=== PATIENT | male | born 1960 | race Caucasian/White ===

== ENCOUNTER → 2022-07-10 | Outpatient (CLI) | payer SELFPAY ==
[2022-07-10 17:55] LABS: Hematocrit 41.7 % (37.0-53.0); Hemoglobin 13.9 g/dL (13.5-17.5); Mean Corpuscular HGB 30.4 pg (26.0-34.0); Mean Corpuscular HGB Conc 33.3 g/dL (31.5-36.5); Mean Corpuscular Volume 91 fL (80-100); Mean Platelet Volume 11.4 fL (9.1-12.4); Platelet Count 96 K/mm3 (150-400); RDW Coefficient Variation 12.9 % (11.7-14.2); RDW Standard Deviation 42.9 fL (35.1-46.3); Red Blood Cell Count 4.57 M/mm3 (4.30-5.90); White Blood Cell Count 18.53 K/mm3 (4.00-11.30)
[2022-07-10 18:03] LABS: Albumin, Blood 4.4 g/dL (3.4-5.0); Alk Phos 66 U/L (50-136); Anion Gap 8 mmol/L (6-16); Aspartate Aminotrans (AST/SGOT 23 U/L (12-37); Bilirubin, Total 0.5 mg/dL (0.1-1.0); Blood Urea Nitrogen 13 mg/dL (8-24); CHOL/HDL RATIO 2.9; CO2, Blood 25 mmol/L (21-32); Calcium, Blood 9.3 mg/dL (8.5-10.1); Chloride, Blood 107 mmol/L (98-108); Cholesterol 126 mg/dL (50-200); Glucose, Blood 154 mg/dL (70-99); HDL Cholesterol 43 mg/dL (>39); LDL/HDL RATIO 0.8; Low Density Lipoprotein Chol 33 mg/dL (0-110); Potassium, Blood 3.4 mmol/L (3.5-5.5); Sodium, Blood 140 mmol/L (136-145); Triglycerides 249 mg/dL (30-160); Very Low Density Lipoprot Chol 49 mg/dL (6-32)
[2022-07-10 18:17] LABS: Alanine Aminotransfer (ALT/SGP 41 U/L (12-78); Albumin/Globulin Ratio 1.6 (0.8-1.8); Bun/Creatinine Ratio 15.7 (12.0-20.0); Creatinine, Blood 0.83 mg/dL (0.60-1.20); Globulin, Blood 2.8 g/dL (2.2-4.0); Glomerular Filtration Rate 99 (60-); PSA, %Free 17.5 %; Total Protein, Blood 7.2 g/dL (6.4-8.2)
== END | disposition home or self-care (01) ==
LOC: LAB SHORT 15:59
PROVIDERS: Family Medicine Adult Medicine
DX: Z13.29 Encounter for screening for other suspected endocrine disorder (principal); I10 Essential (primary) hypertension; N40.0 Benign prostatic hyperplasia without lower urinary tract symptoms; E78.5 Hyperlipidemia, unspecified; R73.03 Prediabetes
CPT/HCPCS: 80053; 80061; 83036; 84153; 84154; 84443; 85027

== ENCOUNTER 2022-10-09 07:39 | Day surgery (SDC) | payer BC ==
[~2022-10-09] VITALS: Ht 167.6 cm; Wt 86.6 kg
[2022-10-09] MEDS ORDERED: LISINOPRIL-HCT1 EAC1 (08:16)
[2022-10-09] MEDS ORDERED: TAMS.4ER (08:16)
[2022-10-09] MEDS ORDERED: Aspir 8181 MG (08:17)
[2022-10-09] MEDS ORDERED: ATOR10 (08:17)
[2022-10-09 09:12] VITALS: BP 127/75
--- NOTE | 2022-10-09 09:13 | NUR ---
10/09/22 0913 Clemencia Richmond IV DC'D, CATH INTACT. PRESSURE DRESSING APPLIED, PT TOLERATED WELL
== END 2022-10-09 09:11 | disposition home or self-care (01) ==
LOC: ORSCSDS 07:39 → ORSCMMR 08:30 → ORD 08:30 → ORSCSDS 09:11
PROVIDERS: Internal Medicine Gastroenterology
PROC: 0DBN8ZX Excision of Sigmoid Colon, Via Natural or Artificial Opening Endoscopic, Diagnostic (ICD-10-PCS; principal; 2022-10-09 08:30)
DX: Z12.11 Encounter for screening for malignant neoplasm of colon (principal); K63.5 Polyp of colon; K57.30 Diverticulosis of large intestine without perforation or abscess without bleeding; I10 Essential (primary) hypertension; J45.909 Unspecified asthma, uncomplicated; Z85.6 Personal history of leukemia; Z79.899 Other long term (current) drug therapy; Z79.82 Long term (current) use of aspirin
CPT/HCPCS: 82947; 88305; J2704; J7120